=== PATIENT | female | born 1950 | race Caucasian/White ===

== ENCOUNTER 2021-08-11 15:42 | Inpatient (IN) ==
[2021-08-11 16:26] LABS: Basophils # (auto) 0.03 K/uL (0-0.2); Basophils % (auto) 0.3 %; Eosinophils # (auto) 0.05 K/uL (0-0.5); Eosinophils % (auto) 0.6 %; Hematocrit (blood only) 42.8 % (37-47); Hemoglobin 14.1 g/dL (12.0-16.0); Immature Granulocytes # (auto) 0.02 K/uL (0.00-0.02); Immature Granulocytes % (auto) 0.2 %; Lymphocytes # (auto) 1.84 K/uL (1.2-3.4); Lymphocytes % (auto) 20.6 %; Mean Corpuscular Hemoglobin 30.3 pg (25-34); Mean Corpuscular Hgb Conc 32.9 g/dL (32-36); Mean Corpuscular Volume 91.8 fL (80-100); Mean Platelet Volume 10.9 fL (7.4-10.4); Monocytes # (auto) 0.89 K/uL (0.11-0.59); Neutrophils # (auto) 6.11 K/uL (1.4-6.5); Neutrophils % (auto) 68.3 %; Platelet Count 243 K/uL (130-400); RDW Coefficient of Variation 13.9 % (11.5-14.5); RDW Standard Deviation 46.1 fL (36.4-46.3); Red Blood Count 4.66 M/uL (4.2-5.4); White Blood Count 8.94 K/uL (4.8-10.8)
--- NOTE | 2021-08-11 16:33 | XRay Report ---
XR chest 1V portable CLINICAL HISTORY: Atypical chest pain TECHNIQUE: Single frontal radiograph of the chest was obtained. Comparison: None available at the time of this dictation. FINDINGS: No lines and tubes are seen. The cardiomediastinal silhouette is normal. Faint bibasilar airspace opa cities are seen. No evidence of pleural effusion or pneumothorax. IMPRESSION: Faint bibasilar airspace opacities which may represent atelectasis, pneumonia, and/or aspiration. ACT 112: Negative or not required by law. Electronically signed by: Antoine Sage M.D. 08/11/2021 4:31 PM
[2021-08-11 16:35] LABS: INR 1.1 (0.9-1.1); Partial Thromboplastin Ratio 1.1; Prothrombin Time 11.8 Seconds (9.0-12.0)
[2021-08-11 16:52] LABS: Albumin Globulin Ratio 1.8 (0.9-2); BUN Creatinine Ratio 21.2 (10-20); Bilirubin,Total 0.7 mg/dl (0.2-1.0); Calcium 9.3 mg/dl (8.5-10.1); Creatinine Clr Calc Pharmacy 50.4 ml/min; Est GFR (African American) 80.5 ml/min; Est GFR (Non-African American) 69.4 ml/min; Globulin 2.2 gm/dl (2.5-4.0); Magnesium 1.9 mg/dl (1.7-2.4); Potassium 4.2 mmol/L (3.5-5.1); Total Protein 6.2 gm/dl (6.0-8.3)
--- NOTE | 2021-08-11 17:12 | Emergency Department Note ---
Impression & Plan Third degree heart block by electrocardiogram, ARANA (dyspnea on exertion) ED Provider Note Provider: Saul Hawk MD DATE OF SERVICE: 08/11/2021 CHIEF COMPLAINT: Fatigue, shortness of breath, nausea, abdominal pain, shoulder pain HISTORY OF PRESENT ILLNESS: Patient is a 71-year-old female present with stating over the past 2 to 3-week she has been experiencing creased generalized fatigue and worsening dyspnea on exertion. Times having some upper abdominal pain and pain of the right shoulder as well as some nausea. States just does not feel like she has any energy and she had difficult time explaining it. Denies chest pain. Denies leg swelling or recent tick bite. No recent sick contacts reported. Patient denies a cardiac history. He was planning on further gallbladder work-up on Saturday but given symptoms came here. REVIEW OF SYSTEMS: A total of 10 review of systems was obtained and negative except as stated above in the HPI. PAST MEDICAL HISTORY: As noted above MEDICATIONS: Reviewed home medications SOCIAL HISTORY: , lives at home PHYSICAL EXAM: GENERAL: alert and oriented in no acute distress on stretcher Head: normocephalic and atraumatic EYES: No injection, discharge or icterus. NECK: Trachea midline. ENT: Mucous membranes pink and moist. LUNGS: Airway patent. No retractions. Breath sounds clear HEART: Bradycardic rate and rhythm. No chest wall tenderness ABDOMEN: Soft and non-tender, without guarding or rebound. SKIN: Acyanotic, warm, dry, without rashes EXTREMITIES: Without swelling, tenderness or deformity NEUROLOGICAL: No focal deficits. No aphasia. No slurred speech. Ambulatory. EK bpm complete heart block with A-V dissociation. No acute ST segment elevation noted. No priors available for comparison. CONTINUOUS CARDIAC MONITORING: was ordered and showed a heart rate of 30s bpm in complete heart block Patient's laboratory studies and imaging reviewed. Differential includes Infection, dehydration, metabolic abnormality, hypo/hyperglycemia, electrolyte disturbance, anemia, hypoxia, cardiac sources, intracerebral event, toxicologic, neurologic, as well as other pathologies. IMPRESSION/MEDICAL DECISION MAKING: Patient with generalized weakness fatigue and intermittent abdominal pain. Benign abdomen here today. Patient noted to be in complete heart block and bradycardic. Discussed with cardiology immediately also evaluated at bedside. Patient symptomatic but not in extremis and stable. Hypertensive. Pacer pads were placed in anticipation but not utilized. Blood work without evidence of Lyme disease and normal electrolytes. TSH within normal limits. No significant evidence on clinical exam of heart failure. Reassuring white count and no significant transaminitis noted on blood work. Believe patient's general weakness shortness of breath likely related to heart block. Unsure of exact etiology of why heart block developed. Evaluated by cardiology will take to the Counterintelligence Analyst for pacemaker placement a discussion with the patient and her at bedside. DIAGNOSIS: Complete heart block, weakness DISPOSITION: Hospitalist will evaluate Taken Counterintelligence Analyst for pacemaker Critical Care I have personally spent 32 minutes of critical care time in the direct m anagement of this patient. This includes bedside care, interpretation of diagnostic studies, and testing, discussion with consultants, patient, and family members, and other required patient management activities. These 32 minutes is in excess of all separately billable procedures. Past Med/Surg History Social History Smoking Status: Former smoker Feels Safe at Home: Yes Allergies Allergies Allergy/AdvReac Type Severity Reaction Status Date / Time raspberry Allergy Hives Unverified 08/11/21 17:40 strawberry Allergy Hives Unverified 08/11/21 17:39 Penicillins AdvReac Nausea Unverified 08/11/21 17:40 Home Meds Home Medications Medication Instructions Recorded Confirmed cholecalciferol (vitamin D3) 25 0 mcg PO DAILY 08/11/21 08/11/21 mcg (1,000 unit) capsule duloxetine 20 mg capsule,delayed 60 mg PO DAILY 08/11/21 08/11/21 release multivitamin 1 tab PO DAILY 08/11/21 08/11/21 Results & Data (ED) Vital Signs Vital Signs - 24 hr 08/11/21 15:52 08/11/21 16:06 08/11/21 16:08 Temperature 36.3 C L Temperature Source Oral Pulse Rate 34 L 36 L 36 L Pulse Rate from SpO2 Sensor 32 L 32 L Pulse Rhythm Regular Pulse Strength Strong Respiratory Rate 20 14 15 Respiratory Effort / Characteristics Non-Labored Respiratory Depth Normal Blood Pressure 212/66 H Blood Pressure Mean 114 Pulse Oximetry 97 97 96 Oxygen Delivery Method Room Air Sepsis Recent Fever Within 48 Hours No Sepsis New/Unexplained Change in Mental Status N/A Sepsis Action Taken by Nursing No Action Required 08/11/21 16:11 08/11/21 16:30 08/11/21 17:00 Temperature Temperature Source Pulse Rate 33 L 31 L Pulse Rate from SpO2 Sensor 31 L 31 L Pulse Rhythm Pulse Strength Respiratory Rate 13 13 Respiratory Effort / Characteristics Respiratory Depth Blood Pressure Blood Pressure Mean Pulse Oximetry 95 95 96 Oxygen Delivery Method Room Air Sepsis Recent Fever Within 48 Hours Sepsis New/Unexplained Change in Mental Status Sepsis Action Taken by Nursing 08/11/21 17:29 08/11/21 17:30 08/11/21 17:31 Temperature Temperature Source Pulse Rate 32 L 32 L 32 L Pulse Rate from SpO2 Sensor 32 L 32 L 32 L Pulse Rhythm Pulse Strength Respiratory Rate 17 14 14 Respiratory Effort / Characteristics Respiratory Depth Blood Pressure 190/58 H 190/65 H Blood Pressure Mean 102 106 Pulse Oximetry 94 96 96 Oxygen Delivery Method Sepsis Recent Fever Within 48 Hours Sepsis New/Unexplained Change in Mental Status Sepsis Action Taken by Nursing Laboratory Data Result diagrams: 08/11/21 16:05 08/11/21 16:05 Lab Results 08/11/21 08/11/21 08/11/21 Range/Units 16:05 16:05 16:05 WBC 8.94 (4.8-10.8) K/uL RBC 4.66 (4.2-5.4) M/uL Hgb 14.1 (12.0-16.0) g/dL Hct 42.8 (37-47) % MCV 91.8 (80-100) fL MCH 30.3 (25-34) pg MCHC 32.9 (32-36) g/dL RDW Std Deviation 46.1 (36.4-46.3) fL RDW Coeff of Vick 13.9 (11.5-14.5) % Plt Count 243 (130-400) K/uL MPV 10.9 H (7.4-10.4) fL Immature Gran % (Auto) 0.2 % Neut % (Auto) 68.3 % Lymph % (Auto) 20.6 % [place] % (Auto) 10.0 % Eos % (Auto) 0.6 % Baso % (Auto) 0.3 % Neut # (Auto) 6.11 (1.4-6.5) K/uL Lymph # (Auto) 1.84 (1.2-3.4) K/uL [place] # (Auto) 0.89 H (0.11-0.59) K/uL Eos # (Auto) 0.05 (0-0.5) K/uL Baso # (Auto) 0.03 (0-0.2) K/uL Immature Gran # (Auto) 0.02 (0.00-0.02) K/uL PT 11.8 (9.0-12.0) Seconds INR 1.1 (0.9-1.1) APTT 31.0 (21.0-31.0) Seconds PTT Ratio 1.1 Sodium (136-145) mmol/L Potassium (3.5-5.1) mmol/L Chloride (98-107) mmol/L Carbon Dioxide (21-32) mmol/L Anion Gap (3-11) BUN (6-23) mg/dl Creatinine (0.6-1.2) mg/dl Est Cr Clr Drug Dosing ml/min Est GFR ( Amer) ml/min Est GFR (Non-Af Amer) ml/min BUN/Creatinine Ratio (10-20) Glucose (70-99(Fasting)) mg/dl Calcium (8.5-10.1) mg/dl Magnesium (1.7-2.4) mg/dl Total Bilirubin (0.2-1.0) mg/dl AST (13-39) U/L ALT (7-52) U/L Alkaline Phosphatase (34-104) U/L Troponin I High Sens 14.9 H (0-14) pg/ml Total Protein (6.0-8.3) gm/dl Albumin (3.4-5.0) gm/dl Globulin (2.5-4.0) gm/dl Albumin/Globulin Ratio (0.9-2) Lipase (11-82) U/L TSH (0.300-4.500) uIu/ml Lyme Disease IgG Ab (Negative) Lyme Disease IgM Ab (Negative) SARS-CoV-2, RNA, NAAT (NEGATIVE) 08/11/21 08/11/21 08/11/21 Range/Units 16:05 16:05 16:18 WBC (4.8-10.8) K/uL RBC (4.2-5.4) M/uL Hgb (12.0-16.0) g/dL Hct (37-47) % MCV (80-100) fL MCH (25-34) pg MCHC (32-36) g/dL RDW Std Deviation (36.4-46.3) fL RDW Coeff of Vick (11.5-14.5) % Plt Count (130-400) K/uL MPV (7.4-10.4) fL Immature Gran % (Auto) % Neut % (Auto) % Lymph % (Auto) % [place] % (Auto) % Eos % (Auto) % Baso % (Auto) % Neut # (Auto) (1.4-6.5) K/uL Lymph # (Auto) (1.2-3.4) K/uL [place] # (Auto) (0.11-0.59) K/uL Eos # (Auto) (0-0.5) K/uL Baso # (Auto) (0-0.2) K/uL Immature Gran # (Auto) (0.00-0.02) K/uL PT (9.0-12.0) Seconds INR (0.9-1.1) APTT (21.0-31.0) Seconds PTT Ratio Sodium 142 (136-145) mmol/L Potassium 4.2 (3.5-5.1) mmol/L Chloride 107 (98-107) mmol/L Carbon Dioxide 26 (21-32) mmol/L Anion Gap 9 (3-11) BUN 18 (6-23) mg/dl Creatinine 0.85 (0.6-1.2) mg/dl Est Cr Clr Drug Dosing 50.4 ml/min Est GFR ( Amer) 80.5 ml/min Est GFR (Non-Af Amer) 69.4 ml/min BUN/Creatinine Ratio 21.2 H (10-20) Glucose 101 H (70-99(Fasting)) mg/dl Calcium 9.3 (8.5-10.1) mg/dl Magnesium 1.9 (1.7-2.4) mg/dl Total Bilirubin 0.7 (0.2-1.0) mg/dl AST 17 (13-39) U/L ALT 23 (7-52) U/L Alkaline Phosphatase 54 (34-104) U/L Troponin I High Sens (0-14) pg/ml Total Protein 6.2 (6.0-8.3) gm/dl Albumin 4.0 (3.4-5.0) gm/dl Globulin 2.2 L (2.5-4.0) gm/dl Albumin/Globulin Ratio 1.8 (0.9-2) Lipase 10 L (11-82) U/L TSH (0.300-4.500) uIu/ml Lyme Disease IgG Ab Negative (Negative) Lyme Disease IgM Ab Negative (Negative) SARS-CoV-2, RNA, NAAT NEGATIVE (NEGATIVE) 08/11/21 Range/Units 17:17 WBC (4.8-10.8) K/uL RBC (4.2-5.4) M/uL Hgb (12.0-16.0) g/dL Hct (37-47) % MCV (80-100) fL MCH (25-34) pg MCHC (32-36) g/dL RDW Std Deviation (36.4-46.3) fL RDW Coeff of Vick (11.5-14.5) % Plt Count (130-400) K/uL MPV (7.4-10.4) fL Immature Gran % (Auto) % Neut % (Auto) % Lymph % (Auto) % [place] % (Auto) % Eos % (Auto) % Baso % (Auto) % Neut # (Auto) (1.4-6.5) K/uL Lymph # (Auto) (1.2-3.4) K/uL [place] # (Auto) (0.11-0.59) K/uL Eos # (Auto) (0-0.5) K/uL Baso # (Auto) (0-0.2) K/uL Immature Gran # (Auto) (0.00-0.02) K/uL PT (9.0-12.0) Seconds INR (0.9-1.1) APTT (21.0-31.0) Seconds PTT Ratio Sodium (136-145) mmol/L Potassium (3.5-5.1) mmol/L Chloride (98-107) mmol/L Carbon Dioxide (21-32) mmol/L Anion Gap (3-11) BUN (6-23) mg/dl Creatinine (0.6-1.2) mg/dl Est Cr Clr Drug Dosing ml/min Est GFR ( Amer) ml/min Est GFR (Non-Af Amer) ml/min BUN/Creatinine Ratio (10-20) Glucose (70-99(Fasting)) mg/dl Calcium (8.5-10.1) mg/dl Magnesium (1.7-2.4) mg/dl Total Bilirubin (0.2-1.0) mg/dl AST (13-39) U/L ALT (7-52) U/L Alkaline Phosphatase (34-104) U/L Troponin I High Sens (0-14) pg/ml Total Protein (6.0-8.3) gm/dl Albumin (3.4-5.0) gm/dl Globulin (2.5-4.0) gm/dl Albumin/Globulin Ratio (0.9-2) Lipase (11-82) U/L TSH 1.465 (0.300-4.500) uIu/ml Lyme Disease IgG Ab (Negative) Lyme Disease IgM Ab (Negative) SARS-CoV-2, RNA, NAAT (NEGATIVE) Imaging Data Radiologist's Impression: Chest X-Ray 08/11/21 16:07 XR chest 1V portable CLINICAL HISTORY: Atypical chest pain TECHNIQUE: Single frontal radiograph of the chest was obtained. Comparison: None available at the time of this dictation. FINDINGS: No lines and tubes are seen. The cardiomediastinal silhouette is normal. Faint bibasilar airspace opacities are seen. No evidence of pleural effusion or pneumothorax. IMPRESSION: Faint bibasilar airspace opacities which may represent atelectasis, pneumonia, and/or aspiration. ACT 112: Negative or not required by law. Electronically signed by: Antoine Sage M.D. 08/11/2021 4:31 PM Discharge Plan Visit Data Chief Complaint: Abdominal Pain Stated Complaint: ABDOMINAL PAIN, SHORTNESS OF BREATH, GALLBLADDER ED Provider: Saul Hawk Discharge Problem: Third degree heart block by electrocardiogram, ARANA (dyspnea on exertion) Patient Disposition: Admitted As Inpatient Discharge Instructions Interventions: ED Discharge Assessment Last Done: 08/11/21 17:45
[2021-08-11 17:23] LABS: Lyme Ab IgG w/WB Rflx Negative (Negative); Lyme Ab IgM w/WB Rflx Negative (Negative)
[2021-08-11] MEDS ORDERED: LIDOCAINE 1% LOCAL 20 ML VIAL ONE ×2 (17:34→18:12)
[2021-08-11] MEDS ORDERED: fentaNYL citrate 100 MCG/2 ML VIAL ONE (17:34)
[2021-08-11] MEDS ORDERED: MIDAZOLAM HCL 5 MG/ML 1 ML VIAL ONE (17:34)
[2021-08-11] MEDS ORDERED: WATER, STERILE FOR INJ 10 ML VIAL ONE (17:34)
[2021-08-11] MEDS ORDERED: BUPIVACAINE 0.25% 30 ML VIAL ONE (17:35)
[2021-08-11] MEDS ORDERED: VANCOMYCIN HCL 1000MG/20ML VIAL ONE (17:35)
[2021-08-11] MEDS ORDERED: ceFAZolin 330 MG/ML 1 GM VIAL ONE (17:35)
--- NOTE | 2021-08-11 17:43 | Cardiology Consultation ---
Date of Consultation August 11, 2021 Assessment & Plan (1) Third degree heart block by electrocardiogram: 71-year-old female without significant underlying medical issues who presents with several weeks history of generalized weakness and fatigue worsening with symptoms over the last 1 to 2 weeks marked fatigue shortness of breath and declining exercise capacity. No chest pains or anginal symptoms, no syncope EKG reveals sinus rhythm with third-degree AV block and junctional escape mechan ism without ST segment abnormalities or Q waves. Chest x-ray with normal size cardiac silhouette. Laboratory studies demonstrate no hypoperfusion injury renal or hepatic Plan: Discussed findings in detail with patient and . Patient will require permanent pacemaker and will refer due to availability this evening. No overt inciting causes History of Present Illness Reason for Consultation: Third degree heart block Requesting Physician: Dr. Hawk History of Present Illness Patient is a 71-year-old female without prior history of cardiac disease or significant underlying medical issues per patient presents now noting several weeks of generalized malaise weakness and exertional dyspnea. Yesterday increased symptoms of orthopnea and abdominal bloating and tenderness. Ultimately led to ER presentation where she was found to be in third-degree heart block with junctional escape rate 30 No chest pains no tachypalpitations syncope or near syncope. Dizziness occasionally. No fevers chills or unexplained infection. No bleeding difficulties. No acute change in weight appetite diminished in the last several days. No headache or visual changes. No recent rash or tick exposure. No history of diabetes or thyroid disease. Past smoker discontinued greater than 15 years prior. Rare alcohol user without excess No history of surgeries with past contrast administration for renal lithiasis remote Allergies Allergy/AdvReac Type Severity Reaction Status Date / Time raspberry Allergy Hives Unverified 08/11/21 17:40 strawberry Allergy Hives Unverified 08/11/21 17:39 Penicillins AdvReac Nausea Unverified 08/11/21 17:40 Home Medications Medication Instructions Recorded Confirmed Type cholecalciferol (vitamin D3) 25 0 mcg PO DAILY 08/11/21 08/11/21 History mcg (1,000 unit) capsule duloxetine 20 mg capsule,delayed 60 mg PO DAILY 08/11/21 08/11/21 History release multivitamin 1 tab PO DAILY 08/11/21 08/11/21 History Patient History Social History Smoking Status: Former smoker Feels Safe at Home: Yes Review of Systems Review of Systems: All systems reviewed & are unremarkable except as noted in HPI & below Physical Exam Constitutional: WD/WN, vitals as above Eyes: PERRL, conjunctivae normal, anicteric sclerae ENMT: external ear and nose normal, oropharynx normal Neck: trachea midline, no thyromegaly Respiratory: normal respiratory effort, lungs clear to auscultation Cardiovascular: Rate/Rhythm: regular rate and regular rhythm Heart Sounds: normal S1 and normal S2; no gallop and no murmur Palpation: normal PMI Vessels: normal carotid upstroke and radial pulses present; no JVD and no carotid bruit Extremities: no edema Gastrointestinal (Abdomen): normal bowel sounds, soft, nontender, no hepatosplenomegaly Musculoskeletal: no cyanosis or clubbing, extremities motor strength 5/5 Skin: no rashes, warm and dry Neurologic: PERRL, EOMI, accommodation nl, no face palsy, no dysarthria Psychiatric: A+Ox3, euthymic affect Results & Data ([facility]) Vital Signs (Past 12 Hours) Vital Signs Temp Pulse Resp BP Pulse Ox 08/11/21 17:00 31 L 13 96 08/11/21 16:30 33 L 13 95 08/11/21 16:11 95 08/11/21 16:08 36 L 15 212/66 H 96 08/11/21 16:06 36 L 14 97 08/11/21 15:52 36.3 C L 34 L 20 97 Laboratory Results Laboratory Results - last 24 hr 08/11/21 08/11/21 08/11/21 16:05 16:05 16:05 WBC 8.94 RBC 4.66 Hgb 14.1 Hct 42.8 MCV 91.8 MCH 30.3 MCHC 32.9 RDW Std Deviation 46.1 RDW Coeff of Vick 13.9 Plt Count 243 MPV 10.9 H Immature Gran % (Auto) 0.2 Neut % (Auto) 68.3 Lymph % (Auto) 20.6 [place] % (Auto) 10.0 Eos % (Auto) 0.6 Baso % (Auto) 0.3 Neut # (Auto) 6.11 Lymph # (Auto) 1.84 [place] # (Auto) 0.89 H Eos # (Auto) 0.05 Baso # (Auto) 0.03 Immature Gran # (Auto) 0.02 PT 11.8 INR 1.1 APTT 31.0 PTT Ratio 1.1 Sodium Potassium Chloride Carbon Dioxide Anion Gap BUN Creatinine Est Cr Clr Drug Dosing Est GFR ( Amer) Est GFR (Non-Af Amer) BUN/Creatinine Ratio Glucose Calcium Magnesium Total Bilirubin AST ALT Alkaline Phosphatase Troponin I High Sens 14.9 H Total Protein Albumin Globulin Albumin/Globulin Ratio Lipase TSH Lyme Disease IgG Ab Lyme Disease IgM Ab SARS-CoV-2, RNA, NAAT 08/11/21 08/11/21 08/11/21 16:05 16:05 16:18 WBC RBC Hgb Hct MCV MCH MCHC RDW Std Deviation RDW Coeff of Vick Plt Count MPV Immature Gran % (Auto) Neut % (Auto) Lymph % (Auto) [place] % (Auto) Eos % (Auto) Baso % (Auto) Neut # (Auto) Lymph # (Auto) [place] # (Auto) Eos # (Auto) Baso # (Auto) Immature Gran # (Auto) PT INR APTT PTT Ratio Sodium 142 Potassium 4.2 Chloride 107 Carbon Dioxide 26 Anion Gap 9 BUN 18 Creatinine 0.85 Est Cr Clr Drug Dosing 50.4 Est GFR ( Amer) 80.5 Est GFR (Non-Af Amer) 69.4 BUN/Creatinine Ratio 21.2 H Glucose 101 H Calcium 9.3 Magnesium 1.9 Total Bilirubin 0.7 AST 17 ALT 23 Alkaline Phosphatase 54 Troponin I High Sens Total Protein 6.2 Albumin 4.0 Globulin 2.2 L Albumin/Globulin Ratio 1.8 Lipase 10 L TSH Lyme Disease IgG Ab Negative Lyme Disease IgM Ab Negative SARS-CoV-2, RNA, NAAT NEGATIVE 08/11/21 17:17 WBC RBC Hgb Hct MCV MCH MCHC RDW Std Deviation RDW Coeff of Vick Plt Count MPV Immature Gran % (Auto) Neut % (Auto) Lymph % (Auto) [place] % (Auto) Eos % (Auto) Baso % (Auto) Neut # (Auto) Lymph # (Auto) [place] # (Auto) Eos # (Auto) Baso # (Auto) Immature Gran # (Auto) PT INR APTT PTT Ratio Sodium Potassium Chloride Carbon Dioxide Anion Gap BUN Creatinine Est Cr Clr Drug Dosing Est GFR ( Amer) Est GFR (Non-Af Amer) BUN/Creatinine Ratio Glucose Calcium Magnesium Total Bilirubin AST ALT Alkaline Phosphatase Troponin I High Sens Total Protein Albumin Globulin Albumin/Globulin Ratio Lipase TSH Pending Lyme Disease IgG Ab Lyme Disease IgM Ab SARS-CoV-2, RNA, NAAT
[2021-08-11] MEDS ORDERED: CLINDAMYCIN PHOS 300 MG/2 ML VIAL ONE (17:53)
--- NOTE | 2021-08-11 17:55 | Pre Anesthesia Assessment ---
Date of Service August 11, 2021 Pre Sedation Assessment Vital Signs Temp Pulse Resp BP Pulse Ox 08/11/21 17:00 31 L 13 96 08/11/21 16:30 33 L 13 95 08/11/21 16:11 95 08/11/21 16:08 36 L 15 212/66 H 96 08/11/21 16:06 36 L 14 97 08/11/21 15:52 36.3 C L 34 L 20 97 Cardiovascular + bradycardic Respiratory normal respiratory effort, lungs clear to auscultation Pre-Sedation Airway Assessment Smoking Status: Former smoker Oral Cavity: + Dental Abnormalities Mallampati Class: II ASA: ASA3 NPO Status Date of Last Intake of Fluids: 08/10/21 Date of Last Intake of Solid Food: 08/10/21 Procedure Planning Contraindications for Sedation: none Current Medications Reviewed: Yes Notes The planned sedation has been discussed with the patient. Informed Consent was obtained. I have identified the patient, determined the appropriateness of sedation and have assessed the patient immediately prior to the procedure. All medicine(s) and interventions are by my order.
--- NOTE | 2021-08-11 17:56 | History & Physical Bridge Note ---
Date of Service August 11, 2021 History & Physical Bridge Note I have examined the patient, reviewed the History & Physical and in the interval since the performance of the History & Physical I have noted the following changes of clinical significance: pt with [facility]; for a dual chamber pacemaker; discussed potential risks and consents signed
[2021-08-11] MEDS ORDERED: hydrALAZINE HCL 20 MG/ML VIAL ONE (19:14)
--- NOTE | 2021-08-11 19:46 | Post Anesthesia Assessment ---
Date of Service August 11, 2021 Post Sedation Assessment Vital Signs Temp Pulse Resp BP Pulse Ox 08/11/21 17:31 32 L 14 190/65 H 96 08/11/21 17:30 32 L 14 96 08/11/21 17:29 32 L 17 190/58 H 94 08/11/21 17:00 31 L 13 96 08/11/21 16:30 33 L 13 95 08/11/21 16:11 95 08/11/21 16:08 36 L 15 212/66 H 96 08/11/21 16:06 36 L 14 97 08/11/21 15:52 36.3 C L 34 L 20 97 Recovery Score Activity: Moves 4 extremities Respiration: Deep Breath/Cough Circulation: +/-20% PreAnes Value Consciousness: Fully Awake Oxygen Saturation: > 92% On Room Air Discharge Sedation Level of Care: Fast Track Phase II Post Sedation Plan On clinical assessment, the patient appears to have tolerated the sedation without complications. Patient is recovering as anticipated. Patient will continue to be monitored by nursing and may be discharged when sedation discharge criteria are met per below protocol. Upon Completions of procedure up to 15 minutes continue every 5 minute vital signs and the P.A.R. score; then discharge to a Phase I or Fast Track to Phase II per the following guidelines: * Discharge Patient to appropriate Phase II area if PAR is 8 or greater or return to pre- procedure baseline. The post - procedure orders will be as directed. * If PAR score is less than 8 or not return to pre-procedure baseline then patient will follow Phase I monitoring till PAR is reached for Phase II. The Phase I may be done in procedure room or may call to secure a Phase I area. * If naloxone or flumazenil are used for reversal, hold in Phase I for continued monitoring from when last reversal dose was given for a minimum of 60 minutes or longer pending the nurse and/or physician discretion of patient condition before discharge to Phase II. Please call the Sedation Physician to re-evaluate and complete post-note for discharge to Phase II area. Do NOT discharge from procedure sedation or Phase 1 until post- sedation evaluation note is complete by procedure /sedation MD Sedation Discharge Instructions to be given to the patient at discharge to home.
--- NOTE | 2021-08-11 19:47 | Operative Report ---
Post Operative Report Pre & Post Diagnosis [facility] Operation Date: 08/11/21 17:30 <No data on this case meets the specified criteria> I identified the patient and participated in the time-out.: Yes Procedure Operation Date: 08/11/21 17:30 <No data on this case meets the specified criteria> Surgeon Fatemeh Harrell, DO Poison Information Specialist none Estimated Blood Loss 50 Findings Consistent with Post-Op Diagnosis Specimens none Description of Procedure see official report I attest to the content of the Intraoperative Record and any orders documented therein. Any exceptions are noted below.
--- NOTE | 2021-08-11 21:35 | History & Physical Report ---
Date of Service August 11, 2021 Assessment & Plan (1) Third degree heart block by electrocardiogram: Plan: Third degree heart block- s/p emergent PPM placement today. PPM interrogation tomorrow and repeat CXR in am. Further management per cardio. Abnormal chest xray- unlikely pneumonia clinically. Paucity of respiratory symptoms, no fever, cough, leucocytosis. Her ARANA is from [facility]. No indication for ABx currently. If febrile or clinical status change, consider empiric ABx. Repeat CXR in am Continue home cymbalta Dispo- PCU on tele. Anticipate discharge tomorrow after cardio eval DVT ppx- SCDs. Admission and Anticipated Discharge Date Admission Date: August 11, 2021 History of Present Illness Chief Complaint: Fatigue, Shortness of breath Primary Care Provider: Haven Clark 71 year old female with no prior significant history who presented to the ED today with several weeks of generalized weakness, fatigue and exertional dyspnea. Yesterday , she had increasing orthopnea, abdominal bloating and pain and though she had gall bladder issues. She came to the ED today for evaluation where she was found to be in third degree heart block and was emergently taken for PPM placement prior to be seen by us. Patient was seen and examined at bedside after PPM placement. States she feels tired and would like to drink something. Denies any pain, palpitations, lightheadedness, chest pain, shortness of breath, nausea, vomiting. She only takes cymbalta and multivitamin on regular basis. Allergies Allergy/AdvReac Type Severity Reaction Status Date / Time raspberry Allergy Hives Unverified 08/11/21 17:40 strawberry Allergy Hives Unverified 08/11/21 17:39 Penicillins AdvReac Nausea Unverified 08/11/21 17:40 Home Medications Medication Instructions Recorded Confirmed Type cholecalciferol (vitamin D3) 25 1,000 mcg PO DAILY 08/11/21 08/11/21 History mcg (1,000 unit) capsule duloxetine 60 mg capsule,delayed 60 mg PO DAILY 08/11/21 08/11/21 History release multivitamin 1 tab PO DAILY 08/11/21 08/11/21 History Past Med/Surg History Social History Smoking Status: Former smoker Hx Alcohol Use: Yes Hx Substance Use: No 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 Clear breath sounds bilaterally, no wheezes or crackles CVS: Regular rate and rhythm, normal heart sounds, no murmur Abdomen: Soft, non tender, not distended, normal bowel sounds Neuro: Awake, alert, oriented, conversing well, non focal Extremities: No cyanosis, clubbing or edema Results & Data Results & Data ([facility]) Vital Signs (Past 12 Hours) Vital Signs Temp Pulse Pulse Resp BP BP Pulse Ox 08/11/21 20:24 36.6 C 91 H 20 149/71 H 93 08/11/21 17:31 32 L 14 190/65 H 96 08/11/21 17:30 32 L 14 96 08/11/21 17:29 32 L 17 190/58 H 94 08/11/21 17:00 31 L 13 96 08/11/21 16:30 33 L 13 95 08/11/21 16:11 95 08/11/21 16:08 36 L 15 212/66 H 96 08/11/21 16:06 36 L 14 97 08/11/21 15:52 36.3 C L 34 L 20 97 Laboratory Results Short CBC 08/11/21 Range/Units 16:05 WBC 8.94 (4.8-10.8) K/uL Hgb 14.1 (12.0-16.0) g/dL Hct 42.8 (37-47) % Plt Count 243 (130-400) K/uL BMP 08/11/21 16:05 Sodium 142 Potassium 4.2 Chloride 107 Carbon Dioxide 26 BUN 18 Creatinine 0.85 Glucose 101 H Calcium 9.3 Liver Function 08/11/21 Range/Units 16:05 Total Bilirubin 0.7 (0.2-1.0) mg/dl AST 17 (13-39) U/L ALT 23 (7-52) U/L Alkaline Phosphatase 54 (34-104) U/L Albumin 4.0 (3.4-5.0) gm/dl Diagnostic Findings Chest X-Ray 08/11/21 16:07 XR chest 1V portable CLINICAL HISTORY: Atypical chest pain TECHNIQUE: Single frontal radiograph of the chest was obtained. Comparison: None available at the time of this dictation. FINDINGS: No lines and tubes are seen. The cardiomediastinal silhouette is normal. Faint bibasilar airspace opacities are seen. No evidence of pleural effusion or pneumothorax. IMPRESSION: Faint bibasilar airspace opacities which may represent atelectasis, pneumonia, and/or aspiration. ACT 112: Negative or not required by law. Electronically signed by: Antoine Sage M.D. 08/11/2021 4:31 PM
[2021-08-12] MEDS: ACETAMINOPHEN 325 MG TAB PO PRN ×2 (01:12→08:52)
[2021-08-12 07:57] LABS: BUN Creatinine Ratio 26.5 (10-20); Calcium 8.6 mg/dl (8.5-10.1); Creatinine Clr Calc Pharmacy 63.5 ml/min; Est GFR (African American) 102.7 ml/min; Est GFR (Non-African American) 88.6 ml/min; Potassium 3.7 mmol/L (3.5-5.1)
[2021-08-12 08:09] LABS: Hematocrit (blood only) 37.4 % (37-47); Hemoglobin 12.4 g/dL (12.0-16.0); Mean Corpuscular Hemoglobin 30.2 pg (25-34); Mean Corpuscular Hgb Conc 33.2 g/dL (32-36); Mean Corpuscular Volume 91.2 fL (80-100); Mean Platelet Volume 10.6 fL (7.4-10.4); Platelet Count 200 K/uL (130-400); RDW Coefficient of Variation 13.9 % (11.5-14.5); RDW Standard Deviation 46.4 fL (36.4-46.3); White Blood Count 8.02 K/uL (4.8-10.8)
[2021-08-12] MEDS ORDERED: DULoxetine HCL 60 MG CAP PO SCH (09:00)
[2021-08-12] MEDS ORDERED: CHOLECALCIFEROL 1,000 UNITS 25 MCG TAB PO SCH (09:00)
[2021-08-12] MEDS ORDERED: MULTIVITAMIN TAB PO SCH (09:00)
--- NOTE | 2021-08-12 10:02 | Electrocardiogram Report ---
Test Reason : Blood Pressure : / mmHG Vent. Rate : 033 BPM Atrial Rate : 033 BPM P-R Int : 370 ms QRS Dur : 096 ms QT Int : 670 ms P-R-T Axes : 085 040 041 degrees QTc Int : 495 ms Sinus Tachycardia with High Degree AVB vs Complete HB with a Junctional escape rhythm at 33 BPM Prolonged QT Abnormal ECG No previous ECGs available Confirmed by Tico Mcbride ([id number]) on 08/12/2021 10:02:15 AM Referred By: REFERRED SELF Confirmed By:Tico Mcbride
--- NOTE | 2021-08-12 10:17 | Electrocardiogram Report ---
Test Reason : Blood Pressure : / mmHG Vent. Rate : 082 BPM Atrial Rate : 082 BPM P-R Int : 168 ms QRS Dur : 136 ms QT Int : 454 ms P-R-T Axes : 064 -29 079 degrees QTc Int : 530 ms Poor data quality, interpretation may be adversely affected Atrial-sensed ventricular-paced rhythm Abnormal ECG When compared with ECG of 11-AUG-2021 16:06, (unconfirmed) Electronic ventricular pacemaker has replaced Sinus rhythm with [facility] Vent. rate has increased BY 49 BPM Confirmed by Tico Mcbride ([id number]) on 08/12/2021 10:17:06 AM Referred By: REFERRED SELF Confirmed By:Tico Mcbride
--- NOTE | 2021-08-12 10:59 | XRay Report ---
XR chest 2V PA/lateral CLINICAL HISTORY: s/p ppm TECHNIQUE: 2 views of the chest were obtained. Comparison: Comparison is made to chest radiograph 08/11/2021 FINDINGS: No lines and tubes are seen. Calcified aortic knob is seen. The lungs are clear. There are small bila teral pleural effusions. IMPRESSION: Small bilateral pleural effusions, increased from prior exam. ACT 112: Negative or not required by law. Electronically signed by: Antoine Sage M.D. 08/12/2021 10:58 AM
--- NOTE | 2021-08-12 13:42 | Cardiology Progress Note ---
Date of Service August 12, 2021 Assessment & Plan (1) Third degree heart block by electrocardiogram: Plan: 71-year-old female without significant underlying medical issues who presents with several weeks history of generalized weakness and fatigue worsening with symptoms over the last 1 to 2 weeks marked fatigue shortness of breath and declining exercise capacity. No chest pains or anginal symptoms, no syncope EKG reveals sinus rhythm with third-degree AV block and junctional escape mechanism without ST segment abnormalities or Q waves. Chest x-ray with normal size cardiac silhouette. Laboratory studies demonstrate no hypoperfusion injury renal or hepatic Plan: Status post dual-chamber permanent pacemaker placement. Device functioning appropriately. Chest x-ray confirmed placement. Already feeling better clinically. No inciting event found for heart block. Okay to DC to home from a cardiac standpoint. Ideally would like to obtain 2D echocardiogram prior to discharge but discharge does not need to be delayed for this procedure. My office will call to arrange outpatient follow-up for pocket check and establish with device clinic along with cardiac follow-up. Okay to DC to home, no medication changes Admission and Anticipated Discharge Date Admission Date: August 11, 2021 Subjective Patient seen and examined, chart reviewed. States that she is already feeling better after pacer insertion. Notes that fatigue has improved. Slight discomfort of pocket site but otherwise feeling well. Telemetry reviewed: Atrially sensed and ventricularly paced rhythm Review of Systems Review of Systems: All systems reviewed & are unremarkable except as noted in HPI & below Physical Exam Physical Exam: General: Awake, alert and oriented x 3. No acute distress. HEENT: Normocephalic, atraumatic. Pupils equal, round and reactive to light and accommodation. Extraocular muscles are intact. Anicteric sclera. Moist mucous membranes. Neck: No JVD. No bruit. Cardiovascular: Regular. Positive S-4. Normal S-1 and S-2. No S-3. No murmurs or rubs. Pulmonary: Clear to auscultation B/L. No rales, rhonchi or wheezing Abdomen: Bowel sounds x 4, soft. No rebound, guarding or tenderness. No organomegaly. Extremities: No clubbing, cyanosis or edema. +2 pedal pulses bilaterally. Skin: Warm and dry. Results & Data ([facility]) Vital Signs (Past 12 Hours) Vital Signs Temp Pulse Resp BP BP Pulse Ox 08/12/21 11:08 37.0 C 81 17 125/70 92 08/12/21 07:36 37 C 86 18 150/77 H 91 08/12/21 03:03 37.1 C 83 16 150/66 H 90
--- NOTE | 2021-08-12 14:37 | Discharge Summary ---
Date of Service August 12, 2021 Admission HPI Per Admitting Provider 71 year old female with no prior significant history who presented to the ED today with several weeks of generalized weakness, fatigue and exertional dyspnea. Yesterday , she had increasing orthopnea, abdominal bloating and pain and though she had gall bladder issues. She came to the ED today for evaluation where she was found to be in third degree heart block and was emergently taken for PPM placement prior to be seen by us. Patient was seen and examined at bedside after PPM placement. States she feels tired and would like to drink something. Denies any pain, palpitations, lightheadedness, chest pain, shortness of breath, nausea, vomiting. She only takes cymbalta and multivitamin on regular basis. Admission Exam Per Admitting Provider General: Lying comfortably in bed, not in distress, on room air HEENT: EOMI, DENNIS, MMM Chest: Left upper chest with dressing at site of PPM placement- clean dry intact. Clear breath sounds bilaterally, no wheezes or crackles CVS: Regular rate and rhythm, normal heart sounds, no murmur Abdomen: Soft, non tender, not distended, normal bowel sounds Neuro: Awake, alert, oriented, conversing well, non focal Extremities: No cyanosis, clubbing or edema Principal Diagnosis Third degree heart block Status post pacemaker placement Discharge Exam Constitutional + well hydrated; no acute distress Eyes PERRL, conjunctivae normal, anicteric sclerae ENMT external ear and nose normal, oropharynx normal Respiratory normal respiratory effort, lungs clear to auscultation Cardiovascular Rate/Rhythm: regular rate and regular rhythm S1 S2 Chest (Breasts) Additional Comments: Clean dressing over pacemaker site Gastrointestinal (Abdomen) normal bowel sounds, soft, nontender, no hepatosplenomegaly Musculoskeletal no cyanosis or clubbing, extremities motor strength 5/5 Neurologic PERRL, EOMI, accommodation nl, no face palsy, no dysarthria Psychiatric A+Ox3, euthymic affect Discharge Data Allergies Allergy/AdvReac Type Severity Reaction Status Date / Time raspberry Allergy Hives Unverified 08/11/21 17:40 strawberry Allergy Hives Unverified 08/11/21 17:39 Penicillins AdvReac Nausea Unverified 08/11/21 17:40 Consultations 08/11/21 16:42 Consult Cardiology Routine 08/11/21 16:51 ED Decision to Admit Stat 08/11/21 20:28 Consult Cardiology Routine Procedures Performed Operation Date: 08/11/21 17:30 Actual Procedures p Pacer with A/V Leads (Dual) - Fatemeh Harrell DO p Lead LV (No Priopr Implant) - Fatemeh Harrell DO Ordered Studies 08/11/21 17:45 EP Lab Images for PACS ONCE Hospital Course (1) Third degree heart block by electrocardiogram: Patient presented with weeks of fatigue, worsening dyspnea on exertion, abdominal pain that occasionally radiates to the shoulder. On presentation to the ER, lab work was unremarkable. However, EKG showed third degree heart block. Patient was taken for emergent pacemaker placement. Pacemaker was placed on 08/11/2021. Patient seen and examined today. Patient reports resolution of all symptoms. Reports only mild pain at surgical site. Patient will follow up with Cardiology outpatient Total Time Total Time Spent Total Time Spent (In Minutes): 35 Total Time Includes: Examination of the Patient, Discharge Planning, Medication Reconciliation and Communication With Other Providers Discharge Plan Discharge Items Patient Disposition: Home - Self-Care Reason For Visit: ABDOMINAL PAIN, SHORTNESS OF BREATH Discharge Diagnosis: Third degree heart block Status post pacemaker placement Activity: As commented below Activity Comment: do not raise the left elbow over the left shoulder for 1 month Lifting: No more than 10 pounds Lifting Comment: do not lift more than 10 pounds with the left arm for 2 weeks Bathing: Keep incision dry Bathing Comment: keep dressing on & dry until wound check next week Non-emergency contact: Primary Care Provider and 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 [Primary Care Provider] - Diet: Heart Healthy Lesia Attending Provider Instructions: Mrs Pabon. You came to the hospital complaining of weeks of fatigue, shortness of breath with activity, abdominal bloating and pain. You were evaluated and noted to have Third degree heart block. This was managed with emergent pacemaker placement. All your symptoms resolved afterwards. You can use tylenol as needed for surgical site pain. You are being discharged home. Please ensure follow up with Cardiology. It was a pleasure taking care of you. 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: Device and wound as scheduled at [facility] next week Try to wear a surgical bra for the next 2-3 weeks to help with wound healing Pending Studies at Discharge: Yes (Echo) Stand-Alone Forms: My [facility] [employer], Smoking Cessation Medications and DC Order Prescriptions: New acetaminophen 325 mg Tablet 650 mg PO Q6H PRN (Reason: pain) Qty: 30 RF: 0 Continued multivitamin Tablet 1 tab PO DAILY RF: 0 cholecalciferol (vitamin D3) 25 mcg (1,000 unit) Capsule 1,000 mcg PO DAILY RF: 0 duloxetine 60 mg capsule,delayed release(DR/EC) 60 mg PO DAILY RF: 0 Discharge Orders: Discharge Order (Routine); Ordered 08/12/21 Ordered By: Teri Domínguez Admission Data Admit Date/Time: 08/11/21 20:16 Attending Provider: Teri Domínguez I. Admit Provider: Wilver Galeana Primary Care Provider: Haven Clark Other Providers: Sukhdeep Giang ; Wilver Galeana Other Interventions: Discharge Summary Assessment (RN) Last Done: 08/12/21 15:30
--- NOTE | 2021-08-14 13:24 | Operative Report (OR) ---
DATE OF PROCEDURE: 08/11/2021. PREOPERATIVE DIAGNOSIS: Complete heart block. POSTOPERATIVE DIAGNOSIS: Complete heart block. PROCEDURE: Dual-chamber rate responsive permanent pacemaker under fluoroscopic guidance along with peripheral venogram. SURGEON: Fatemeh Harrell DO. RADIO OPERATOR GROUND: None. ANESTHESIA: Monitored conscious sedation administered under my supervision by Julius Loera. Start time 1807, end time 1944. A total of 3 mg of Versed and 75 mcg of fentanyl and 170 mL of IV fluids. ANTIBIOTICS: 600 mg of clindamycin. CONTRAST: 25 mL. ADDITIONAL MEDICINE: 20 mg of hydralazine. INDICATIONS: This is a 71-year-old female with no past medical history, but she presented to [facility] with generalized weakness and nausea and abdominal pain and found to be in complete heart block, and she was recommended a pacemaker. CONSENT: Consent was obtained prior to the patient going into the hybrid OR room. The patient was informed of the risks, benefits, and alternatives to the procedure. Risks include, but not limited to, sudden cardiac , cardiac arrhythmia, cerebrovascular accident, myocardial infarction, injury to the blood vessels, chamber of the heart and lung, bleeding and infection. The patient understood these risks and agreed to the procedure as planned. Informed consent was obtained. DESCRIPTION OF PROCEDURE: The patient was brought into the electrophysiology lab in a fasting state. She was connected to continuous cardiac monitoring. A time-out was performed to ensure the patient's identity and procedure correctly. She was prepped and draped over the left infraclavicular space in normal surgical standard fashion. She received prophylactic antibiotics prior to incision. Monitored conscious sedation was given throughout the procedure for patient's comfort level. [place] precautions were maintained throughout the procedure. 20 mL of 1% lidocaine-bupivacaine mixture were given in the left deltopectoral groove. An incision was made in the left deltopectoral groove. Blunt dissection was performed down to the pectoralis muscle. Then, a peripheral venogram was performed to identify the axillary vein. Venous axillary access was obtained through a needlestick without any problems. A guidewire was inserted without any resistance. The 7-Austrian sheath was inserted over the guidewire, the dilator was removed. A second guidewire was inserted through the sheath to allow for retained venous access. Sheath was removed, flushed, reinserted over the dilator, reinserted over one of the guidewires, the guidewire and dilator removed. Then, the right atrial lead was temporarily placed in the right ventricular apex to have backup pacing while positioning the left bundle lead. A second 7-Austrian sheath was inserted over the retained guidewire, the guidewire and dilator removed. Then, the His C305 sheath was advanced over a Glidewire into the right ventricle. The Glidewire and dilator removed. Ultimately, I tried looking for some His bundle signals, but because of the complete heart block, I could not find any, but I did kind of have a sense of where the His was based on my A:V ratio. I then marked where this was when my camera was in DANIELSON 30, came down about 2 cm in a line that would extend out to the apex and started coming on pacing to see if I had a good pacing complex. A few times, I had a decent W in V1, so I moved the camera to NAY[place] 30 and tried to give a series of clockwise turns; it either may be a few times went through or just was not anything, but ultimately I never had the best signal. We repositioned it a few times until we finally got decent signals and then the His C315 sheath was slit under fluoroscopic guidance, but I left the 7-Austrian sheath in. The right atrial lead that was temporarily placed in the right ventricular area was, screw was retracted and then the right atrial lead was advanced into the right atrial appendage under fluoroscopic guidance. There was adequate pacing and sensing thresholds and no diaphragmatic stimulation with high output pacing. Of note, I did have to reposition it one time, then the pocket was flushed with copious amounts of vancomycin and saline wash and inspected for hemostasis. Pulse generator was then placed in the antibiotic pouch followed then by being placed in the pocket, making sure the leads were lying flat beneath the device. The incision was then closed in a 3-layer fashion using 2-0 Vicryl interrupted suture followed by 3-0 Vicryl interrupted suture, followed by 4-0 Monocryl running stitch and Dermabond was applied followed by Telfa and Tegaderm dressing. EQUIPMENT: 1. Medtronic [place] XT DR ROBY Erickson [id number], serial number [id number]. 2. TYRX pouch, reference [id number], lot number [id number]. 3. Right atrial lead, Medtronic 5156-52 cm, serial number [id number]. 4. Left bundle lead, Medtronic 3830-64 cm, serial number [id number]. INTRAOPERATIVE TESTIN. Right atrial lead, P waves 2.3 millivolts, impedance 511 ohms, threshold 1 volt at 0.5 milliseconds. 2. Left bundle, no R waves, the patient is dependent, impedance 1093 ohms, threshold 0.6 volts at 0.5 milliseconds. FINAL MEASUREMENTS THROUGH THE DEVICE: 1. Right atrial lead, P waves 2.9 millivolts, impedance 437 ohms, threshold 0.5 volts at 0.4 milliseconds. 2. Left bundle lead, no R waves. The patient is dependent. Impedance 950 ohms, threshold 0.75 volts at 0.4 milliseconds. FINAL PARAMETERS: DDD 60/130. Right atrial amplitude 3.5 volts, pulse width 0.4 milliseconds, sensitivity 0.3 millivolts. Left bundle lead amplitude 5 volts, pulse width 0.4 milliseconds, sensitivity 2 millivolts. IMPRESSION: Successful dual chamber rate responsive permanent pacemaker under fluoroscopic guidance along with peripheral venogram secondary to complete heart block. PLAN: Monitor the patient. She can be transferred back to the telemetry floor. She is not to lift the left elbow or left shoulder for 1 month. She cannot lift more than 10 pounds with left arm for 2 weeks. She is to keep the dressing on and dry until her wound check next week. Job ID: [id number] [facility]
== END 2021-08-12 17:15 | disposition home or self-care (01) | DRG 244 ==
LOC: ED 15:42 → OR 17:45 → OBSVTOIN 20:16 → SUATTDRO 20:16 → 2S 20:16 → INTOOBSV 20:16

== ENCOUNTER 2021-08-13 13:55 | Observation (INO) ==
[2021-08-13] MEDS ORDERED: ONDANSETRON INJ 2 MG/ML 2 ML VIAL IV STA (14:19)
[2021-08-13] MEDS ORDERED: SODIUM CHLORIDE 0.9% 500 ML IV STA (14:19)
[2021-08-13] MEDS ORDERED: MoRPHine SULFATE 2 MG/ML CARP IV STA (14:19)
--- NOTE | 2021-08-13 14:29 | Emergency Department Note ---
History of Present Illness General Chief complaint: Cardiac Assessment Stated complaint: HEADACHE,S/P PACER INSERTION 24 HOURS AGO Time Seen by Provider: 08/13/21 14:07 Source: patient and family ( who is at the bedside) Mode of arrival: ambulatory Limitations: no limitations History of Present Illness Maximum Pain Intensity: 10 This patient is a 71-year-old female who was brought in by her after grant ving a headache. She had an AV sequential pacemaker placed yesterday here by 'josue is already. This was for third-degree heart block. She was discharged afterwards. She had a mild headache and was given Tylenol she said it it was helping she says she woke up this morning around 10:00 and was worse and is gotten worse throughout the day. It started on the right side. It is now diffuse. She has had some nausea. No numbness or weakness, no change in vision. She has some sensitivity to light. She has had no trauma or injury. No fever or chills no difficulty speaking or swallowing. No palpitations, chest pain or shortness of breath. She is on no blood thinners. No lightheadedness o r dizziness. She does not typically had headaches like this. Home Medications Medication Instructions Recorded Confirmed Type cholecalciferol (vitamin D3) 25 1,000 mcg PO QAM 08/11/21 08/13/21 History mcg (1,000 unit) capsule duloxetine 60 mg capsule,delayed 60 mg PO QAM 08/11/21 08/13/21 History release multivitamin 1 tab PO QAM 08/11/21 08/13/21 History Allergies Allergy/AdvReac Type Severity Reaction Status Date / Time raspberry Allergy Hives Unverified 08/13/21 15:01 strawberry Allergy Hives Unverified 08/13/21 15:01 Penicillins AdvReac Nausea Unverified 08/13/21 15:01 Past Med/Surg History Social History Smoking Status: Never smoker Hx Alcohol Use: Yes Hx Substance Use: No Bench Hand Machine Required: No Beliefs That Will Affect Care: None Current Living Situation: Significant Other Feels Safe at Home: Yes Assistive Devices: Glasses Immunizations: Past medical historythird-degree heart block with recent pacemaker placed Review of Systems A total of 10 systems reviewed and were otherwise negative Physical Exam Vital Signs Vital Signs - 24 hr 08/13/21 13:58 08/13/21 14:46 08/13/21 15:00 Temperature 36.1 C L Temperature Source Oral Pulse Rate 82 82 Pulse Rate from SpO2 Sensor 83 Pulse Rhythm Regular Pulse Strength Normal Respiratory Rate 28 H 12 Respiratory Effort / Characteristics Non-Labored Other Respiratory Depth Normal Blood Pressure 172/80 H 175/91 H Blood Pressure Mean 110 119 Blood Pressure Position Sitting Pulse Oximetry 94 93 Oxygen Delivery Method Room Air Room Air Sepsis Recent Fever Within 48 Hours No Sepsis New/Unexplained Change in Mental Status N/A Sepsis Action Taken by Nursing No Action Required 08/13/21 15:30 Temperature Temperature Source Pulse Rate 85 Pulse Rate from SpO2 Sensor Pulse Rhythm Pulse Strength Respiratory Rate 13 Respiratory Effort / Characteristics Respiratory Depth Blood Pressure 169/82 H Blood Pressure Mean 111 Blood Pressure Position Pulse Oximetry Oxygen Delivery Method Sepsis Recent Fever Within 48 Hours Sepsis New/Unexplained Change in Mental Status Sepsis Action Taken by Nursing General: Well developed well nourished older female who is holding an emesis bag complain of a headache and nausea in no acute distress, breathing comfortably on room air. Normal speech HEENT: Normal cephalic atraumatic. Pupils are equal round and reactive to light. Extraocular movements are intact. Oropharynx is pink with moist mucous membranes. No swelling of the mouth lips or tongue. Neck: Supple with a midline trachea. No meningeal signs or stiffness, no JVD or bruits. No Stridor. Chest: Clear to auscultation bilaterally. No wheezes or rhonchi. No increased work of breathing. Is intact from pacemaker no redness or significant tenderness. No crepitus or subcutaneous air. Heart: Regular rate and rhythm without murmurs or gallops. Abdomen: Soft nontender, nondistended without rebound guarding or rigidity. Extremities: No cyanosis clubbing or edema. No calf tenderness or assymetry Spine/Back. Non tender to palpation. No CVA tenderness Skin: Good turgor without rashes. Neurologic exam: Cranial nerves two through 12 are intact. Motor and sensation are intact and symmetrical throughout. Nerves intact no pronator drift. No tremor. Course Administered Medications Discontinued Medications Sodium Chloride (Nss) 500 mls @ 999 mls/hr IV .Q31M STA Stop: 08/13/21 14:49 Last Infusion: 08/13/21 15:22 Dose: 0 mls/hr Documented by: [id number] Admin: 08/13/21 14:36 Dose: 999 mls/hr Documented by: [id number] Sodium Chloride (Nss 1000ml) 500 mls @ 999 mls/hr IV .Q31M ONE Stop: 08/13/21 16:44 Last Admin: 08/13/21 16:35 Dose: 999 mls/hr Documented by: [id number] Ioversol (Optiray 320 125ml) 120 ml IV ONCE ONE Stop: 08/13/21 15:49 Last Admin: 08/13/21 15:49 Dose: 120 ml Documented by: [id number] Ketorolac Tromethamine (Ketorolac Tromethamine 15 Mg/Ml Vial) 10 mg IV NOW ONE Stop: 08/13/21 16:15 Last Admin: 08/13/21 16:36 Dose: 10 mg Documented by: [id number] Morphine Sulfate (Morphine Sulfate 2 Mg/Ml Carp) 2 mg IV NOW STA Stop: 08/13/21 14:20 Last Admin: 08/13/21 14:36 Dose: 2 mg Documented by: [id number] Ondansetron HCl (Ondansetron Inj 2 Mg/Ml 2 Ml Vial) 4 mg IV NOW STA Stop: 08/13/21 14:20 Last Admin: 08/13/21 14:36 Dose: 4 mg Documented by: [id number] Medical Decision Making Differential Diagnosis Headache, intracranial hemorrhage, vascular injury, subarachnoid hemorrhage, aneurysm, subdural hematoma, postop complication Laboratory Data Result diagrams: 08/13/21 14:35 08/13/21 14:35 Lab Results 08/13/21 08/13/21 08/13/21 Range/Units 14:35 14:35 14:35 WBC 9.28 (4.8-10.8) K/uL RBC 4.06 L (4.2-5.4) M/uL Hgb 12.4 (12.0-16.0) g/dL Hct 37.0 (37-47) % MCV 91.1 (80-100) fL MCH 30.5 (25-34) pg MCHC 33.5 (32-36) g/dL RDW Std Deviation 45.3 (36.4-46.3) fL RDW Coeff of Vick 13.7 (11.5-14.5) % Plt Count 193 (130-400) K/uL MPV 10.4 (7.4-10.4) fL Immature Gran % (Auto) 0.1 % Neut % (Auto) 82.8 % Lymph % (Auto) 9.9 % [place] % (Auto) 6.7 % Eos % (Auto) 0.3 % Baso % (Auto) 0.2 % Neut # (Auto) 7.68 H (1.4-6.5) K/uL Lymph # (Auto) 0.92 L (1.2-3.4) K/uL [place] # (Auto) 0.62 H (0.11-0.59) K/uL Eos # (Auto) 0.03 (0-0.5) K/uL Baso # (Auto) 0.02 (0-0.2) K/uL Immature Gran # (Auto) 0.01 (0.00-0.02) K/uL PT 11.8 (9.0-12.0) Seconds INR 1.1 (0.9-1.1) APTT 31.3 H (21.0-31.0) Seconds PTT Ratio 1.1 Sodium 141 (136-145) mmol/L Potassium 4.2 (3.5-5.1) mmol/L Chloride 108 H (98-107) mmol/L Carbon Dioxide 23 (21-32) mmol/L Anion Gap 10 (3-11) BUN 13 (6-23) mg/dl Creatinine 0.60 (0.6-1.2) mg/dl Est Cr Clr Drug Dosing Not Reportable Est GFR ( Amer) 107.0 ml/min Est GFR (Non-Af Amer) 92.4 ml/min BUN/Creatinine Ratio 21.7 H (10-20) Glucose 100 H (70-99(Fasting)) mg/dl Calcium 8.9 (8.5-10.1) mg/dl Total Bilirubin 0.7 (0.2-1.0) mg/dl AST 18 (13-39) U/L ALT 16 (7-52) U/L Alkaline Phosphatase 54 (34-104) U/L Total Protein 6.1 (6.0-8.3) gm/dl Albumin 3.6 (3.4-5.0) gm/dl Globulin 2.5 (2.5-4.0) gm/dl Albumin/Globulin Ratio 1.4 (0.9-2) Lipase 14 (11-82) U/L Imaging Data Attestation: I personally reviewed and interpreted this imaging study as follows: My Impression: X-rayno pneumothorax. There is a small pleural effusion and density in the right base which was on previous x-ray Radiologist's Impression: Chest X-Ray 08/13/21 14:19 XR chest 1V portable HISTORY: Atypical Chest Pain COMPARISON: Chest 08/12/2021. FINDINGS: No pneumothorax. Small right pleural effusion and right basilar densities persist. Trace left pleural effusion has improved. There is mild central pulmonary vascular congestion without overt edema. The left lung is clear. Left-sided dual-chamber pacemaker. The heart remains top normal in size. IMPRESSION: 1. Small right pleural effusion and right basilar densities, unchanged. 2. Mild pulmonary vascular congestion without overt edema. 3. Trace left pleural effusion has improved. ACT 112: Negative or not required by law. Electronically signed by: Ulysses Stanley M.D. 08/13/2021 2:49 PM Head CTA 08/13/21 14:24 HEAD & NECK CTA HISTORY: headache s/p pacemaker TECHNIQUE: Multiaxial CT images of the head were performed following the intravenous administration of contrast to evaluate the major cerebral vessels. Multiaxial CT images of the neck were also performed following the intravenous administration of contrast to evaluate the major cervical vessels. Maximum intensity projection images were also obtained. A dose lowering technique was utilized adhering to the principles of ALARA. COMPARISON: Head CT 08/13/2021. FINDINGS: There is no mass, hematoma, midline shift, or acute infarct. Visualized intracranial internal carotid arteries, distal vertebral arteries, and basilar artery are widely patent. There is no significant stenosis, occlusion, or aneurysm seen within the bilateral ACAs, MCAs, or tax preparer. The major dural venous sinuses are patent. The aortic arch and proximal great vessels are widely patent. There is no significant stenosis, occlusion, or dissection identified within the bilateral common carotid, internal carotid, or vertebral arteries. Emphysema noted at the lung apices with bilateral pleural effusions. Partially visualized left-sided pacemaker. Subcutaneous gas within the left anterior chest likely represents recent pacemaker placement. IMPRESSION: 1. No significant stenosis, occlusion, or aneurysm within the [place]. 2. No significant stenosis, occlusion, or dissection identified within the carotid or vertebral arteries. 3. Emphysema and small bilateral pleural effusions. ACT 112: Negative or not required by law. Electronically signed by: Ulysses Stanley M.D. 08/13/2021 4:10 PM Neck CTA 08/13/21 14:24 HEAD & NECK CTA HISTORY: headache s/p pacemaker TECHNIQUE: Multiaxial CT images of the head were performed following the intravenous administration of contrast to evaluate the major cerebral vessels. Multiaxial CT images of the neck were also performed following the intravenous administration of contrast to evaluate the major cervical vessels. Maximum intensity projection images were also obtained. A dose lowering technique was utilized adhering to the principles of ALARA. COMPARISON: Head CT 08/13/2021. FINDINGS: There is no mass, hematoma, midline shift, or acute infarct. Visualized intracranial internal carotid arteries, distal vertebral arteries, and basilar artery are widely patent. There is no significant stenosis, occlusion, or aneurysm seen within the bilateral ACAs, MCAs, or tax preparer. The major dural venous sinuses are patent. The aortic arch and proximal great vessels are widely patent. There is no significant stenosis, occlusion, or dissection identified within the bilateral common carotid, internal carotid, or vertebral arteries. Emphysema noted at the lung apices with bilateral pleural effusions. Partially visualized left-sided pacemaker. Subcutaneous gas within the left anterior chest likely represents recent pacemaker placement. IMPRESSION: 1. No significant stenosis, occlusion, or aneurysm within the [place]. 2. No significant stenosis, occlusion, or dissection identified within the carotid or vertebral arteries. 3. Emphysema and small bilateral pleural effusions. ACT 112: Negative or not required by law. Electronically signed by: Ulysses Stanley M.D. 08/13/2021 4:[address] 08/13/21 15:[address] DOSE: HISTORY: headache s/p pacemaker TECHNIQUE: Multiaxial CT images of the head were performed without the use of intravenous contrast. Automated exposure control was utilized for this study. A dose lowering technique was utilized adhering to the principles of ALARA. Comparison: None. Findings: The paranasal sinuses and mastoid air cells are clear. The calvarium and skull base are intact. The ventricles and sulci are within normal limits. There is no mass, hematoma, midline shift, or acute infarct. Impression: No acute intracranial abnormality. ACT 112: Negative or not required by law. Electronically signed by: Ulysses Stanley M.D. 08/13/2021 4:04 PM ECG Data Attestation: I personally reviewed and interpreted this ECG as follows: Indication: + weakness Rate (beats per minute): 77 Rhythm: + other (Ventricular paced rhythm) ECG Intervals/blocks: + IVCD and + Normal QT ECG [place]: + Normal ECG Findings: no PACs or no PVCs Comparison ECG Date: from (08/13/11) Change: no significant change MDM Narrative This patient comes in after having a headache since yesterday. She had a pacemaker placed. She has no fever no trauma and has a normal neurologic exam. It was mild and got progressively worse. She does not typically get headaches. She has no chest pain shortness of breath or palpitations. No pleurisy. IV access was established and she was given morphine 2 mg IV and Zofran 4 mg IV and was resting much more comfortably. I did discuss the case initially with Dr. Gan who is domestic housekeeper on-call who took care of her in the hospital. He does not have any concerns with a complication of a pacemaker placement being responsible for this. I did tell him that I was going to do neuroimaging and he agreed with this. I did order CAT scan the head as well as CTA of the head and neck. She has a normal white count and nothing to suggest encephalitis or meningitis. She has a stable normal hemoglobin. She has no significant electrolyte or metabolic abnormality and has normal renal function. Chest x-ray does not show any pneumothorax she has a small pleural effusion on the right with some atelectasis which was on the previous x-ray as well. Of the head was unremarkable. CT angio of the head and neck were also unremarkable there is no evidence of aneurysm or dissection. The patient was having more pain and was given Toradol 10 mg IV as well as IV fluids I did talk to her and her at length. She has nothing to she has meningitis or encephalitis. She has no fever or white count or neck pain. I do not think she needs a spinal tap at this point. Given her ongoing symptoms I do think she needs to be admitted for pain management and further observation. Her did tell her she was quite hypertensive last evening is possible that is playing a role she is also had so me changes in her medication which could also be playing a role here as well. I did discuss the case with the [facility] hospitalist, Dr. Domínguez, who will see her for these measures. Continuous cardiac monitoring: Orders placed in EMR for continuous cardiac monitoring. Matt interpretation the patient was noted to be in a paced rhythm at a rate of 80. Impression & Plan Headache, S/P cardiac pacemaker procedure, Nausea & vomiting, Intractable pain Discharge Plan Visit Data Chief Complaint: Cardiac Assessment Stated Complaint: HEADACHE,S/P PACER INSERTION 24 HOURS AGO ED Provider: Jonathan Soto Discharge Problem: Headache, S/P cardiac pacemaker procedure, Nausea & vomiting, Intractable pain Forms Stand Alone Forms: My [facility] [employer] Prescriptions Prescriptions: No Action multivitamin Tablet 1 tab PO QAM RF: 0 cholecalciferol (vitamin D3) 25 mcg (1,000 unit) Capsule 1,000 mcg PO QAM RF: 0 duloxetine 60 mg capsule,delayed release(DR/EC) 60 mg PO QAM RF: 0 Referrals Referrals: Haven Clark D.O. [Primary Care Provider] -
--- NOTE | 2021-08-13 14:50 | XRay Report ---
XR chest 1V portable HISTORY: Atypical Chest Pain COMPARISON: Chest 08/12/2021. FINDINGS: No pneumothorax. Small right pleural effusion and right basilar densities persist. Trace le ft pleural effusion has improved. There is mild central pulmonary vascular congestion without overt e analia. The left lung is clear. Left-sided dual-chamber pacemaker. The heart remains top normal in size . IMPRESSION: 1. Small right pleural effusion and right basilar densities, unchanged. 2. Mild pulmonary vascular congestion without overt edema. 3. Trace left pleural effusion has improved. ACT 112: Negative or not required by law. Electronically signed by: Ulysses Stanley M.D. 08/13/2021 2:49 PM
[2021-08-13 14:51] LABS: Basophils # (auto) 0.02 K/uL (0-0.2); Basophils % (auto) 0.2 %; Eosinophils # (auto) 0.03 K/uL (0-0.5); Eosinophils % (auto) 0.3 %; Hemoglobin 12.4 g/dL (12.0-16.0); Immature Granulocytes # (auto) 0.01 K/uL (0.00-0.02); Immature Granulocytes % (auto) 0.1 %; Lymphocytes # (auto) 0.92 K/uL (1.2-3.4); Lymphocytes % (auto) 9.9 %; Mean Corpuscular Hemoglobin 30.5 pg (25-34); Mean Corpuscular Hgb Conc 33.5 g/dL (32-36); Mean Corpuscular Volume 91.1 fL (80-100); Mean Platelet Volume 10.4 fL (7.4-10.4); Monocytes # (auto) 0.62 K/uL (0.11-0.59); Monocytes % (auto) 6.7 %; Neutrophils # (auto) 7.68 K/uL (1.4-6.5); Neutrophils % (auto) 82.8 %; Platelet Count 193 K/uL (130-400); RDW Coefficient of Variation 13.7 % (11.5-14.5); RDW Standard Deviation 45.3 fL (36.4-46.3); Red Blood Count 4.06 M/uL (4.2-5.4); White Blood Count 9.28 K/uL (4.8-10.8)
[2021-08-13 15:14] LABS: Alanine Aminotransferase 16 U/L (7-52); Albumin Globulin Ratio 1.4 (0.9-2); Albumin Level 3.6 gm/dl (3.4-5.0); Alkaline Phosphatase 54 U/L (34-104); Anion Gap 10 (3-11); Aspartate Aminotransferase 18 U/L (13-39); BUN Creatinine Ratio 21.7 (10-20); Bilirubin,Total 0.7 mg/dl (0.2-1.0); Blood Urea Nitrogen 13 mg/dl (6-23); Calcium 8.9 mg/dl (8.5-10.1); Carbon Dioxide 23 mmol/L (21-32); Chloride 108 mmol/L (98-107); Est GFR (Non-African American) 92.4 ml/min; Globulin 2.5 gm/dl (2.5-4.0); Glucose 100 mg/dl (70-99(Fasting)); Lipase 14 U/L (11-82); Potassium 4.2 mmol/L (3.5-5.1); Sodium 141 mmol/L (136-145); Total Protein 6.1 gm/dl (6.0-8.3)
[2021-08-13 15:23] LABS: INR 1.1 (0.9-1.1); Partial Thromboplastin Ratio 1.1; Partial Thromboplastin Time 31.3 Seconds (21.0-31.0); Prothrombin Time 11.8 Seconds (9.0-12.0)
[2021-08-13] MEDS ORDERED: OPTIRAY 320 125ml IV ONE (15:48)
--- NOTE | 2021-08-13 16:05 | CT Scan Report ---
HEAD CT NONCONTRAST CT DOSE: HISTORY: headache s/p pacemaker TECHNIQUE: Multiaxial CT images of the head were performed without the use of intravenous contrast. A utomated exposure control was utilized for this study. A dose lowering technique was utilized adheri ng to the principles of ALARA. Comparison: None. Findings: The paranasal sinuses and mastoid air cells are clear. The calvarium and skull base are int act. The ventricles and sulci are within normal limits. There is no mass, hematoma, midline shift, or acute infarct. Impression: No acute intracranial abnormality. ACT 112: Negative or not required by law. Electronically signed by: Ulysses Stanely M.D. 08/13/2021 4:04 PM
--- NOTE | 2021-08-13 16:12 | CT Scan Report ---
HEAD & NECK CTA HISTORY: headache s/p pacemaker TECHNIQUE: Multiaxial CT images of the head were performed following the intravenous administration o f contrast to evaluate the major cerebral vessels. Multiaxial CT images of the neck were also perform ed following the intravenous administration of contrast to evaluate the major cervical vessels. Maxim um intensity projection images were also obtained. A dose lowering technique was utilized adhering to the principles of ALARA. COMPARISON: Head CT 08/13/2021. FINDINGS: There is no mass, hematoma, midline shift, or acute infarct. Visualized intracranial internal carotid arteries, distal vertebral arteries, and basilar artery are widely patent. There is no significant s tenosis, occlusion, or aneurysm seen within the bilateral ACAs, MCAs, or mental health nurse practitioner. The major dural venous sinuses are patent. The aortic arch and proximal great vessels are widely patent. There is no significant stenosis, occ lusion, or dissection identified within the bilateral common carotid, internal carotid, or vertebral arteries. Emphysema noted at the lung apices with bilateral pleural effusions. Partially visualized l eft-sided pacemaker. Subcutaneous gas within the left anterior chest likely represents recent pacemak er placement. IMPRESSION: 1. No significant stenosis, occlusion, or aneurysm within the [place]. 2. No significant stenosis, occlusion, or dissection identified within the carotid or vertebral arter ies. 3. Emphysema and small bilateral pleural effusions. ACT 112: Negative or not required by law. Electronically signed by: Ulysses Stanley M.D. 08/13/2021 4:10 PM
--- NOTE | 2021-08-13 16:13 | CT Scan Report ---
HEAD & NECK CTA HISTORY: headache s/p pacemaker TECHNIQUE: Multiaxial CT images of the head were performed following the intravenous administration o f contrast to evaluate the major cerebral vessels. Multiaxial CT images of the neck were also perform ed following the intravenous administration of contrast to evaluate the major cervical vessels. Maxim um intensity projection images were also obtained. A dose lowering technique was utilized adhering to the principles of ALARA. COMPARISON: Head CT 08/13/2021. FINDINGS: There is no mass, hematoma, midline shift, or acute infarct. Visualized intracranial internal carotid arteries, distal vertebral arteries, and basilar artery are widely patent. There is no significant s tenosis, occlusion, or aneurysm seen within the bilateral ACAs, MCAs, or outsole cementer machine. The major dural venous sinuses are patent. The aortic arch and proximal great vessels are widely patent. There is no significant stenosis, occ lusion, or dissection identified within the bilateral common carotid, internal carotid, or vertebral arteries. Emphysema noted at the lung apices with bilateral pleural effusions. Partially visualized l eft-sided pacemaker. Subcutaneous gas within the left anterior chest likely represents recent pacemak er placement. IMPRESSION: 1. No significant stenosis, occlusion, or aneurysm within the [place]. 2. No significant stenosis, occlusion, or dissection identified within the carotid or vertebral arter ies. 3. Emphysema and small bilateral pleural effusions. ACT 112: Negative or not required by law. Electronically signed by: Ulysses Stanley M.D. 08/13/2021 4:10 PM
[2021-08-13] MEDS ORDERED: SODIUM CHLORIDE 0.9% 1000ML 500 ML IV ONE (16:14)
[2021-08-13] MEDS ORDERED: KETOROLAC TROMETHAMINE 15 MG/ML VIAL IV ONE (16:14)
[2021-08-13] MEDS ORDERED: amLODIPine BESYLATE 5 MG TAB PO ONE (17:18)
--- NOTE | 2021-08-13 17:32 | History & Physical Report ---
Date of Service August 13, 2021 Assessment & Plan (1) Headache: (2) S/P cardiac pacemaker procedure: (3) Hypertension: Plan: 71-year-old woman who had presented 2 days ago with fatigue, exertional dyspnea and found to have third-degree heart block requiring emergent pacemaker placement, was discharged yesterday presents with worsening headache that started yesterday, associated with nausea. CT head and CT angiogram head and neck did not show any acute abnormality. Blood pressure elevated was elevated on presentation Pressure was 172/80 on presentation Lab work unremarkable Start amlodipine 5 mg daily. Will give Tylenol scheduled every 6 hours Tramadol as needed and ketorolac. And for the next 24 hours Get ESR Will admit to advertising coordinator Overnight. Supportive care. Antiemetics Continue home duloxetine DVT ppx - SCD History of Present Illness Chief Complaint: Headache Primary Care Provider: Haven Clark 71-year-old woman who had presented 2 days ago with fatigue, exertional dyspnea and found to have third-degree heart block requiring emergent pacemaker placement, was discharged yesterday presents with worsening headache that started yesterday. Patient reported that she had headache that started yesterday. Described headache Around her eyes and radiating to the sides back of the ear and back of the neck on both sides. Denies any blurry vision, dizziness, syncope Denies any fevers, chills Associated with nausea Pain is severe 10/10 Denies any sore throat, cough, shortness of breath, chest pain. Reports intermittent pain at pacemaker site with movement is well controlled. Reports that she took Tylenol this morning without any relief of the pain unlike yesterday when Tylenol helped with the pain. Denied abdominal pain, constipation or diarrhea Denied dysuria, frequency, hematuria Due to persistent headache today, patient presented to the ER Quit smoking many years ago Drinks alcohol occasionally. Last use was 4 days ago Denies illicit drug use. Reports family history of high blood pressure in the father. Father also had had surgery in his 80s. Mother had breast cancer. Allergies Allergy/AdvReac Type Severity Reaction Status Date / Time raspberry Allergy Hives Unverified 08/13/21 15:01 strawberry Allergy Hives Unverified 08/13/21 15:01 Penicillins AdvReac Nausea Unverified 08/13/21 15:01 Home Medications Medication Instructions Recorded Confirmed Type cholecalciferol (vitamin D3) 25 1,000 mcg PO QAM 08/11/21 08/13/21 History mcg (1,000 unit) capsule duloxetine 60 mg capsule,delayed 60 mg PO QAM 08/11/21 08/13/21 History release multivitamin 1 tab PO QAM 08/11/21 08/13/21 History Past Med/Surg History Social History Smoking Status: Never smoker Hx Alcohol Use: Yes Hx Substance Use: No Shuttle Filler Required: No Beliefs That Will Affect Care: None Current Living Situation: Significant Other Feels Safe at Home: Yes Assistive Devices: Glasses Review of Systems Constitutional: + weakness; no fever, no chills and no body aches Eyes: + eye pain Ear, Nose, Mouth, Throat: no ear pain, no tinnitus and no dizziness Respiratory: no cough, no dyspnea and no dyspnea on exertion Cardiovascular: Additional Comments: Mild intermittent chest pain at surgical site Gastrointestinal: + nausea; no abdominal pain and no vomiting Genitourinary: no dysuria, no difficulty urinating and no hematuria Neurologic: + headache(s); no unsteadiness Psychiatric: no depression and no anxiety Physical Exam Constitutional: + well hydrated; no acute distress Eyes: PERRL, conjunctivae normal, anicteric sclerae ENMT: external ear and nose normal, oropharynx normal Respiratory: normal respiratory effort, lungs clear to auscultation Cardiovascular: RRR, no murmur, no edema Chest (Breasts): Additional Comments: Clean dressing over PPM site Gastrointestinal (Abdomen): normal bowel sounds, soft, nontender, no hepatosplenomegaly Musculoskeletal: no cyanosis or clubbing, extremities motor strength 5/5 Neurologic: PERRL, EOMI, accommodation nl, no face palsy, no dysarthria Psychiatric: A+Ox3, euthymic affect Genitourinary: No CVA tenderness Lymphatic: No cervical lymphadenopathy Results & Data Results & Data ([facility]) Vital Signs (Past 12 Hours) Vital Signs Temp Pulse Resp BP Pulse Ox 08/13/21 15:30 85 13 169/82 H 08/13/21 15:00 82 12 175/91 H 93 08/13/21 13:58 36.1 C L 82 28 H 172/80 H 94 Laboratory Results Abnormal lab results 0508/13/21 08/13/21 Range/Units 14:35 14:35 14:35 RBC 4.06 L (4.2-5.4) M/uL Neut # (Auto) 7.68 H (1.4-6.5) K/uL Lymph # (Auto) 0.92 L (1.2-3.4) K/uL Lewis # (Auto) 0.62 H (0.11-0.59) K/uL APTT 31.3 H (21.0-31.0) Seconds Chloride 108 H (98-107) mmol/L BUN/Creatinine Ratio 21.7 H (10-20) Glucose 100 H (70-99(Fasting)) mg/dl Diagnostic Findings CT head Findings: The paranasal sinuses and mastoid air cells are clear. The calvarium and skull base are intact. The ventricles and sulci are within normal limits. There is no mass, hematoma, midline shift, or acute infarct. Impression: No acute intracranial abnormality. CT angio head and neck There is no mass, hematoma, midline shift, or acute infarct. Visualized intracranial internal carotid arteries, distal vertebral arteries, and basilar artery are widely patent. There is no significant stenosis, occlusion, or aneurysm seen within the bilateral ACAs, MCAs, or biofuels engineering manager. The major dural venous sinuses are patent. The aortic arch and proximal great vessels are widely patent. There is no significant stenosis, occlusion, or dissection identified within the bilateral common carotid, internal carotid, or vertebral arteries. Emphysema noted at the lung apices with bilateral pleural effusions. Partially visualized left-sided pacemaker. Subcutaneous gas within the left anterior chest likely represents recent pacemaker placement. IMPRESSION: 1. No significant stenosis, occlusion, or aneurysm within the [place]. 2. No significant stenosis, occlusion, or dissection identified within the carotid or vertebral arteries. 3. Emphysema and small bilateral pleural effusions. Code Status & VTE Plan VTE Prophylaxis Plan VTE Prophylaxis will be ordered: Yes (1) Headache Headache chronicity pattern: acute headache Headache type: unspecified Intractability: not intractable Qualified Code(s): R51.9 - Headache, unspecified
[2021-08-13] MEDS ORDERED: KETOROLAC TROMETHAMINE 15 MG/ML VIAL IV PRN (19:06)
[2021-08-13] MEDS ORDERED: traMADol HCL 50 MG TABLET PO PRN (19:06)
[2021-08-13] MEDS: ACETAMINOPHEN 325 MG TAB PO SCH (19:19)
[2021-08-13] MEDS: DULoxetine HCL 60 MG CAP PO SCH (19:20)
[2021-08-13] MEDS ORDERED: Nursing to Pharmacy Communication SCH (21:45)
[2021-08-14] MEDS: ACETAMINOPHEN 325 MG TAB PO SCH ×3 (00:54→14:40)
[2021-08-14 08:03] LABS: Hematocrit (blood only) 34.4 % (37-47); Hemoglobin 11.3 g/dL (12.0-16.0); Mean Corpuscular Hemoglobin 30.1 pg (25-34); Mean Corpuscular Hgb Conc 32.8 g/dL (32-36); Mean Corpuscular Volume 91.5 fL (80-100); Mean Platelet Volume 10.1 fL (7.4-10.4); Platelet Count 176 K/uL (130-400); RDW Coefficient of Variation 13.8 % (11.5-14.5); Red Blood Count 3.76 M/uL (4.2-5.4); White Blood Count 6.52 K/uL (4.8-10.8)
[2021-08-14 08:30] LABS: BUN Creatinine Ratio 23.2 (10-20); Calcium 8.1 mg/dl (8.5-10.1); Creatinine Clr Calc Pharmacy 76.9 ml/min; Est GFR (African American) 109.5 ml/min; Est GFR (Non-African American) 94.5 ml/min
[2021-08-14] MEDS ORDERED: MULTIVITAMIN TAB PO SCH (09:00)
[2021-08-14] MEDS ORDERED: CHOLECALCIFEROL 1,000 UNITS 25 MCG TAB PO SCH (09:00)
[2021-08-14] MEDS ORDERED: amLODIPine BESYLATE 5 MG TAB PO SCH (09:00)
[2021-08-14] MEDS: DULoxetine HCL 60 MG CAP PO SCH (09:13)
--- NOTE | 2021-08-14 11:22 | Electrocardiogram Report ---
Test Reason : Blood Pressure : / mmHG Vent. Rate : 077 BPM Atrial Rate : 077 BPM P-R Int : 146 ms QRS Dur : 128 ms QT Int : 436 ms P-R-T Axes : 057 -33 095 degrees QTc Int : 493 ms Atrial-sensed ventricular-paced rhythm Abnormal ECG When compared with ECG of 12-AUG-2021 05:47, Vent. rate has decreased BY 5 BPM Confirmed by Sergey Anglin ([id number]) on 08/14/2021 11:21:56 AM Referred By: REFERRED SELF Confirmed By:Trevor Anglin
--- NOTE | 2021-08-14 12:15 | Discharge Summary ---
Date of Service August 14, 2021 Admission HPI Per Admitting Provider 71-year-old woman who had presented 2 days ago with fatigue, exertional dyspnea and found to have third-degree heart block requiring emergent pacemaker placement, was discharged yesterday presents with worsening headache that started yesterday. Patient reported that she had headache that started yesterday. Described headache Around her eyes and radiating to the sides back of the ear and back of the neck on both sides. Denies any blurry vision, dizziness, syncope Denies any fevers, chills Associated with nausea Pain is severe 10/10 Denies any sore throat, cough, shortness of breath, chest pain. Reports intermittent pain at pacemaker site with movement is well controlled. Reports that she took Tylenol this morning without any relief of the pain unlike yesterday when Tylenol helped with the pain. Denied abdominal pain, constipation or diarrhea Denied dysuria, frequency, hematuria Due to persistent headache today, patient presented to the ER Quit smoking many years ago Drinks alcohol occasionally. Last use was 4 days ago Denies illicit drug use. Reports family history of high blood pressure in the father. Father also had had surgery in his 80s. Mother had breast cancer. Admission Exam Per Admitting Provider Constitutional: + well hydrated; no acute distress Eyes: PERRL, conjunctivae normal, anicteric sclerae ENMT: external ear and nose normal, oropharynx normal Respiratory: normal respiratory effort, lungs clear to auscultation Cardiovascular: RRR, no murmur, no edema Chest (Breasts): Additional Comments: Clean dressing over PPM site Gastrointestinal (Abdomen): normal bowel sounds, soft, nontender, no hepatosplenomegaly Musculoskeletal: no cyanosis or clubbing, extremities motor strength 5/5 Neurologic: PERRL, EOMI, accommodation nl, no face palsy, no dysarthria Psychiatric: A+Ox3, euthymic affect Genitourinary: No CVA tenderness Lymphatic: No cervical lymphadenopathy Principal Diagnosis Headache Hypertension Discharge Exam Constitutional + well hydrated; no acute distress Eyes PERRL, conjunctivae normal, anicteric sclerae ENMT external ear and nose normal, oropharynx normal Respiratory normal respiratory effort, lungs clear to auscultation Cardiovascular RRR, no murmur, no edema Gastrointestinal (Abdomen) normal bowel sounds, soft, nontender, no hepatosplenomegaly Musculoskeletal no cyanosis or clubbing, extremities motor strength 5/5 Neurologic PERRL, EOMI, accommodation nl, no face palsy, no dysarthria Psychiatric A+Ox3, euthymic affect Discharge Data Allergies Allergy/AdvReac Type Severity Reaction Status Date / Time raspberry Allergy Hives Unverified 08/13/21 15:01 strawberry Allergy Hives Unverified 08/13/21 15:01 Penicillins AdvReac Nausea Unverified 08/13/21 15:01 Consultations 08/13/21 16:57 ED Decision to Admit Stat Ordered Studies 08/13/21 14:24 CT angio head w con Stat CT angio neck with con Stat There is no mass, hematoma, midline shift, or acute infarct. Visualized intracranial internal carotid arteries, distal vertebral arteries, and basilar artery are widely patent. There is no significant stenosis, occlusion, or aneurysm seen within the bilateral ACAs, MCAs, or outbound sales specialist. The major dural venous sinuses are patent. The aortic arch and proximal great vessels are widely patent. There is no significant stenosis, occlusion, or dissection identified within the bilateral common carotid, internal carotid, or vertebral arteries. Emphysema noted at the lung apices with bilateral pleural effusions. Partially visualized left-sided pacemaker. Subcutaneous gas within the left anterior chest likely represents recent pacemaker placement. IMPRESSION: 1. No significant stenosis, occlusion, or aneurysm within the [place]. 2. No significant stenosis, occlusion, or dissection identified within the carotid or vertebral arteries. 3. Emphysema and small bilateral pleural effusions. 08/13/21 15:22 CT head/brain wo con Stat The paranasal sinuses and mastoid air cells are clear. The calvarium and skull base are intact. The ventricles and sulci are within normal limits. There is no mass, hematoma, midline shift, or acute infarct. Impression: No acute intracranial abnormality. Hospital Course (1) Headache: (2) S/P cardiac pacemaker procedure: (3) Hypertension: 71-year-old woman who had presented 2 days ago with fatigue, exertional dyspnea and found to have third-degree heart block requiring emergent pacemaker placement, was discharged yesterday presents with worsening headache that started yesterday, associated with nausea. CT head and CT angiogram head and neck did not show any acute abnormality. Blood pressure elevated was elevated on presentation Pressure was 172/80 on presentation Lab work unremarkable Patient was started on amlodipine and Tylenol scheduled every 6 hours Blood pressure normalized and headache improved Discharged on po amlodipine 5mg daily. Advised to keep a BP log at home and follow up with PCP Advised to continue scheduled tylenol for another day prior to changing to PRN Continue home duloxetine Total Time Total Time Spent Total Time Spent (In Minutes): 35 Total Time Includes: Examination of the Patient, Discharge Planning and Medication Reconciliation Discharge Plan Discharge Items Patient Disposition: Home - Self-Care Reason For Visit: HEADACHE Discharge Diagnosis: Headache Hypertension Activity: Resume your previous activity Non-emergency contact: Primary Care Provider Call non-emergency contact if: you have any medication questions and your symptoms worsen Follow-up/Referrals: Haven Clark D.O. [Primary Care Provider] - 08/23/21 9:30 am Diet: Heart Healthy Addtl Attending Provider Instructions: Mrs Yang You came to the hospital complaining of severe headache. You were evaluated and noted to have elevated blood pressure. Your CT scans of the head did not show any acute abnormalities. You were started on amlodipine. Your blood pressure is improved and your headache is significantly improved as well. Please take tylenol 650mg every 6hours for next 24 hours before reverting to as needed as we discussed. You are being discharged on amlodipine 5mg daily for now. Please monitor your blood pressure at home and keep a BP log for your Primary Doctor as we discussed. Please ensure follow up with your Primary Doctor. It was a pleasure taking care of you. Pending Studies at Discharge: No Stand-Alone Forms: My [facility], Smoking Cessation Medications and DC Order Prescriptions: New amlodipine [Norvasc] 5 mg Tablet 5 mg PO QAM Qty: 30 RF: 0 Continued multivitamin Tablet 1 tab PO QAM RF: 0 cholecalciferol (vitamin D3) 25 mcg (1,000 unit) Capsule 1,000 mcg PO QAM RF: 0 duloxetine 60 mg capsule,delayed release(DR/EC) 60 mg PO QAM RF: 0 acetaminophen [Tylenol] 325 mg Tablet 650 mg PO Q6H PRN (Reason: Pain) RF: 0 Discharge Orders: Discharge Order (Routine); Ordered 08/14/21 Ordered By: Teri Domínguez Admission Data Admit Date/Time: 08/13/21 17:15 Attending Provider: Teri Domínguez I. Admit Provider: Teri Domínguez I. Primary Care Provider: Haven Clark Other Providers: Teri Domínguez I. Other Interventions: Discharge Summary Assessment (RN) Last Done: 08/14/21 12:56
== END 2021-08-14 16:57 | disposition home or self-care (01) ==
LOC: 2W 13:55 → ED 13:55 → 2W 18:06